=== PATIENT | female | born 1980 | race Caucasian/White ===

== ENCOUNTER 2020-07-03 15:19 | Emergency (ER) | payer BC, SELFPAY ==
--- NOTE | ~2020-07-03 | XR_ITS ---
EXAMINATION: XR chest 2V DATE: 07/03/2020 16:17 INDICATION: Dizziness. TECHNIQUE: Frontal and lateral views of the chest were obtained. COMPARISON: None. FINDINGS: The chest demonstrates clear lungs without pneumonia, pleural effusion, or pneumothorax. Th e heart size is normal. IMPRESSION: 1. No acute cardiopulmonary disease. Reviewed, dictated and finalized at location A. [facility]
[2020-07-03 15:25] VITALS: BP 134/84; PULSE 82; RESP 18; TEMP 36.6; O2SAT 100
--- NOTE | 2020-07-03 15:40 | ECG_ITS ---
Measurements Intervals [place] Rate: 78 P: 22 LA: 133 QRS: -12 QRSD: 97 T: 3 QT: 371 QTc: 424 Interpretive Statements SINUS RHYTHM DELAYED PRECORDIAL R/S TRANSITION MINIMAL Q WAVES- HIGH LATERAL LEADS BASELINE WANDER- AVF, V3 BORDERLINE ECG Electronically Signed On 07-03-2020 16:17:00 ENERGY AUDIT ADVISOR by Nestor Deshpande D.O.
--- NOTE | 2020-07-03 16:15 | ED.DIZZY ---
HPI - Dizziness General Chief Complaint: Dizziness Stated Complaint: lightheaded Time Seen by Provider: 07/03/20 15:34 History of Present Illness HPI Narrative: Patient is a 39-year-old female who presents ER with intermittent dizziness. Began yesterday. Last for a little bit over second. Can occur with moving and with sitting still. Unsure if is related to turning her head. States she has some mild tension in her head. No fevers or chills or sweats. No runny nose or sore throat/productive cough. She has not had any tinnitus. No ear pressure. Related Data Home Medications Medication Instructions Recorded Confirmed desogestrel-ethinyl estradiol tablet 07/03/20 [[place]] fluoxetine mg 07/03/20 Allergies Allergy/AdvReac Type Severity Reaction Status Date / Time codeine Allergy Unknown Jittery Verified 07/03/20 15:29 iodine Allergy Unknown Swelling Verified 07/03/20 15:29 Review of Systems Review of Systems: All systems reviewed & are unremarkable except as noted in HPI and below Constitutional: Constitutional: Denies chills, Denies fever(s) and Denies weakness ENT: Reports dizziness, Denies nasal congestion and Denies sore throat Cardiovascular: Cardiovascular: Denies chest pain and Denies radiating jaw, neck or arm pain Respiratory: Respiratory: Denies cough, Denies dyspnea and Denies wheezing PMFSH Past Medical History Medical History (Updated 07/03/20 @ 16:50 by Myke Schilling MD) Healthy female adult Surgical History Surgical History (Updated 07/03/20 @ 16:17 by Myke Schilling MD) No history of previous surgery Social History Social History (Updated 07/03/20 @ 16:17 by Myke Schilling MD) Tobacco type: e-cigarettes/vaping Gender identity (if verbalized by the patient): Female Exam Narrative: Exam Narrative: GENERAL: Well-appearing, well-nourished, and in no acute distress. HEAD: Normocephalic, atraumatic. ENT: TM's normal bilaterally. CHEST: Clear to auscultation. No respiratory distress. HEART: Regular rate and rhythm. Normal peripheral pulses. EXTREMITIES: Normal range of motion. No edema. NEURO: Alert and oriented x3. PSYCH: Normal mood and affect. Course Vital Signs Vital signs: Vital Signs Temperature 97.8 F 07/03/20 15:25 Pulse Rate 82 07/03/20 15:25 Respiratory Rate 18 07/03/20 15:25 Blood Pressure 134/84 07/03/20 15:25 Pulse Oximetry 100 07/03/20 15:25 Temperature 97.8 F 07/03/20 15:25 Pulse Rate 99 07/03/20 16:27 Respiratory Rate 18 07/03/20 15:25 Blood Pressure 134/97 H 07/03/20 16:27 Pulse Oximetry 100 07/03/20 15:25 MDM - Dizziness Lab Data Result diagrams: 07/03/20 16:03 07/03/20 16:33 Labs: Lab Results 07/03/20 07/03/20 07/03/20 Range/Units 16:03 16:05 16:33 WBC 5.6 (4.5-10.0) K/mm3 RBC 4.63 (4.2-5.4) M/mm3 Hgb 14.9 (12.0-15.0) g/dL Hct 44.4 (37.0-47.0) % MCV 95.9 (80-100) fl MCH 32.2 (26-34) pg MCHC 33.6 (32-36) g/dl RDW 12.3 (11.5-14.5) % Plt Count 280 (150-375) k/mm3 MPV 10.6 H (7.4-10.4) fl Immature Gran % (Auto) 0.4 (0-0.5) % Neut % (Auto) 56.8 (45.5-73.1) % Lymph % (Auto) 30.4 (18.3-44.2) % [place] % (Auto) 11.0 H (2.6-8.5) % Eos % (Auto) 0.9 (0-4.4) % Baso % (Auto) 0.5 (0.2-1.2) % Lymph # (Auto) 1.69 (0.9-3.2) K/mm3 [place] # (Auto) 0.6 (0.1-0.6) K/mm3 Eos # (Auto) 0.1 (0-0.3) K/mm3 Baso # (Auto) 0.0 (0.0-0.1) K/mm3 Abs Immat Gran (auto) 0.02 (0.00-0.031) K/mm3 Absolute Neuts (auto) 3.2 (1.3-6.7) K/mm3 Absolute Nucleated RBC 0.0 (0.0-0.012) K/mm3 Nucleated RBC % 0.0 (0.0-0.2) % Sodium 141 (137-145) mmol/L Potassium 4.4 (3.4-5.0) mmol/L Chloride 104 (98-107) mmol/L Carbon Dioxide 29 (22-30) mmol/L Anion Gap 8 (8-16) mmol/L BUN 6 L (7-17) mg/dL Creatinine 0.60 L (0.7-1.0) mg/dL Estim Creat Clear Calc
[2020-07-03 16:19] LABS: Basophils Percent Auto 0.5 % (0.2-1.2); Eosinophils Absolute Auto 0.1 K/mm3 (0-0.3); Eosinophils Percent Auto 0.9 % (0-4.4); Hematocrit 44.4 % (37.0-47.0); Hemoglobin 14.9 g/dL (12.0-15.0); Immature Granulocyte Absolute 0.02 K/mm3 (0.00-0.031); Immature Granulocyte Percent A 0.4 % (0-0.5); Lymphocytes Absolute Auto 1.69 K/mm3 (0.9-3.2); Lymphocytes Percent Auto 30.4 % (18.3-44.2); Mean Corpuscular HGB Conc 33.6 g/dl (32-36); Mean Corpuscular Hemoglobin 32.2 pg (26-34); Mean Corpuscular Volume 95.9 fl (80-100); Mean Platelet Volume 10.6 fl (7.4-10.4); Monocytes Absolute Auto 0.6 K/mm3 (0.1-0.6); Neutrophils Absolute Auto 3.2 K/mm3 (1.3-6.7); Neutrophils Percent Auto 56.8 % (45.5-73.1); Platelet Count Result 280 k/mm3 (150-375); Red Blood Count 4.63 M/mm3 (4.2-5.4); Red Cell Distribution Width 12.3 % (11.5-14.5); White Blood Count 5.6 K/mm3 (4.5-10.0)
[2020-07-03 16:21] LABS: Add Urine Microscopic? YES; Appearance Urine Clear (Clear); Bilirubin Urine Negative (Negative); Blood Urine Negative (Negative); Color Urine Colorless (Yellow); Glucose Urine UA Negative (Negative); Ketones Urine Negative (Negative); Leukocyte Esterase Ur 1+ LEU/UL (Negative); Mucus Urine Rare /lpf; Nitrate Urine Negative (Negative); Protein Urine Negative (Negative); RBC Urine 0-2 /hpf (0-2); Specific Grav Ur 1.006 (1.001-1.035); Squamous Epithelial Cell Urine Few /hpf (Few); Urobilinogen Urine Negative mg/dL (<2.0); WBC Urine 0-3 /hpf
[2020-07-03] MEDS: MECLIZINE HCL 25 MG TABLET PO (16:26)
[2020-07-03 16:27] VITALS: BP 129/89; BP 131/82; BP 134/97; PULSE 72; PULSE 84; PULSE 99
[2020-07-03 16:49] LABS: Anion Gap 8 mmol/L (8-16); Blood Urea Nitrogen 6 mg/dL (7-17); Calcium 9.2 mg/dL (8.4-10.2); Carbon Dioxide 29 mmol/L (22-30); Chloride 104 mmol/L (98-107); Estimated CRCL calculation 112 ml/min; Estimated Glomerular Filt Rate > 60; Glucose 86 mg/dL (65-105); Potassium 4.4 mmol/L (3.4-5.0); Sodium 141 mmol/L (137-145)
[2020-07-03 17:02] VITALS: BP 119/78; PULSE 88; RESP 16; O2SAT 100
== END 2020-07-03 17:04 | disposition home or self-care (01) ==
PROVIDERS: Emergency Provider Emergency Medicine
DX: H81.10 Benign paroxysmal vertigo, unspecified ear (principal)
CPT/HCPCS: 36415; 71046; 80048; 81001; 85025; 93005; 99283; A9270

== ENCOUNTER 2024-07-02 08:22 | Outpatient (CLI) | payer OTHER, SELFPAY ==
--- NOTE | ~2024-07-02 | MM_ITS ---
EXAMINATION: MM screening riaz BI w hakan HISTORY: Screening TECHNIQUE: Craniocaudal and mediolateral oblique 3-D tomosynthesis images were obtained and synthetic 2-D images were generated. CAD analysis was submitted and interpreted. COMPARISON: No prior mammogram is available for comparison at this institution. BREAST PARENCHYMAL COMPOSITION: Not dense: There are scattered areas of fibroglandular density. FINDINGS: There is no evidence of suspicious mass, calcification, or architectural distortion to sugg est malignancy in either breast. There has been no suspicious interval change. IMPRESSION: 1. No mammographic evidence of malignancy. 2. Recommend routine screening mammography in one year. BI-RADS Category 1: Negative Reviewed, dictated and finalized at location B. [employer]CTION[employer] SUPPORT ASSISTANT
== END 2024-07-02 08:23 | disposition home or self-care (01) ==
LOC: ANHIMG 08:28
PROVIDERS: PCP Family Medicine; Visit Provider Obstetrics & Gynecology
DX: Z12.31 Encounter for screening mammogram for malignant neoplasm of breast (principal)
CPT/HCPCS: 77063; 77067